=== PATIENT | male | born 1970 | race Caucasian/White ===

== ENCOUNTER 2018-01-27 21:39 | Emergency (ER) ==
[2018-01-27 21:47] VITALS: BP 171/99; TEMP 97.9; BMI 29.9
--- NOTE | 2018-01-27 21:59 | ED.PDOC ---
General ED Provider: Dr. HUNG SHAH Chief Complaint: Abdominal Pain Stated Complaint: Patient is a 47 year old male who comes to the ER with Abdominal and epigastric pain with radiation to the substernal area. Time Seen by Physician: 21:57 Mode of Arrival: Walk-In Information Source: Patient Exam Limitations: No limitations Nursing and Triage Documentation Reviewed and Agree: Yes Does patient meet sepsis criteria?: No If yes, has appropriate treatment been initiated?: No System Inflammatory Response Syndrome: Resp >20/Minute, Not Applicable Sepsis Protocol: For patient's 13 years and over: Temp is 96.8 and below OR 101 and greater Pulse >90 BPM Resp >20/minute Acutely Altered Mental Status Are patient's symptoms suggestive of a new infection, such as: -Pneumonia -Skin, Soft Tissue -Endocarditis -UTI -Bone, Joint Infection -Implantable Device -Acute Abdominal Infection -Wound Infection -Meningitis -Blood Stream Catheter Infection -Unknown Cardiovascular Complaint Exam - Chest Pain Complaint/Exam Onset: Gradual Duration: 2 hours Symptoms Are: Still present Timing: Constant Associated Signs and Symptoms: Reports: Diaphoresis Related History: Reports: Similar episode Related Surgical History: Reports: None History of Healthcare-Acquired Pneumonia: Reports: No AMI/ACS Risk Factors: Reports: None TAD Risk Factors: Reports: None Pulmonary Embolism Risk Factors: Reports: None Prior Care for this Complaint: No Recent Stress Test: No Recent Echo/LV Function: No JVD Present: No Subcutaneous Emphysema Present: No Diminshed Breath Sounds: No Reproducible Chest Wall Pain: No Bilateral Pulses Present: No Unequal Pulses Noted: No If Risk Factors for AMI/ACS Consider: EKG, Cardiac Enzymes Differential Diagnoses: Acute NH, Stable Angina, Unstable Angina Quality Indicators For Acute NH or Cardiac Chest Pain: EKG in 10min. Review of Systems - Review Of Systems Constitutional: Reports: No symptoms Eyes: Reports: No symptoms Ears, Nose, Mouth, Throat: Reports: No symptoms Cardiac: Reports: Chest pain GI: Reports: Abdominal pain (epigastric area ), Nausea : Reports: No symptoms Musculoskeletal: Reports: No symptoms Skin: Reports: No symptoms Neurological: Reports: Anxiety Endocrine: Reports: No symptoms Hematologic/Lymphatic: Reports: No symptoms All Other Systems: Reviewed and Negative Past Medical History - Past Medical History Previously Healthy: Yes Endocrine: Reports: None Cardiovascular: Reports: None Respiratory: Reports: None Hematological: Reports: None Gastrointestinal: Reports: None Genitourinary: Reports: None Neuro/Psych: Reports: Anxiety Musculoskeletal: Reports: None Cancer: Reports: None - Surgical History General Surgical History: Reports: Other (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 ) - Family History Family History: Reports: Heart, Hypertension, Cancer (Familial polyposis ) - Social History Smoking Status: Former smoker Hx Substance Use: No Alcohol Screening: None - Immunizations Tetanus Shot up to Date: Yes Physical Exam - Physical Exam Appearance: Ill-appearing Ill-appearing: Mild Eyes: ULISES, EOMI, Conjunctiva clear ENT: Ears normal, Nose normal, Oropharynx normal Respiratory: Airway patent, Breath sounds clear, Breath sounds equal, Respirations nonlabored Cardiovascular: RRR, Pulses normal, No rub, No murmur GI/: Soft, Nontender, No masses, Bowel sounds normal, No Organomegaly Musculoskeletal: Normal strength, ROM intact, No edema, No calf tenderness Skin: Warm, Dry, Normal color Neurological: Sensation intact, Motor intact, Reflexes intact, Cranial nerves intact, Alert, Oriented Psychiatric: Anxious, Depressed Interpretation - Radiology Interpretation Radiology Interpretation By: ED Physician Radiology Results: Negative Exam Interpreted: Portable CXR - Muck Operator Rate: Normal Rhythm: Sinus Ectopy: None - EKG Interpretation Time of EKG #1: 21:42 Rate: Bernardo Rhythm: Sinus Ectopy: None Interpretation: sinus Bradycardia Critical Care Note - Critical Care Note Total Time (mins): 0 Course - Course Hematology/Chemistry: 01/27/18 22:11 01/27/18 22:11 Orders, Labs, Meds: Lab Review 01/27/18 01/27/18 01/27/18 22:11 22:11 23:17 WBC 7.48 RBC 4.62 L Hgb 14.6 Hct 40.8 L MCV 88.3 MCH 31.6 H MCHC 35.8 H RDW Coeff of Diogenes 12.1 Plt Count 210 Immature Gran % (Auto) 0.3 Neut % (Auto) 62.2 Lymph % (Auto) 31.1 [place] % (Auto) 5.7 Eos % (Auto) 0.0 Baso % (Auto) 0.7 Immature Gran # (Auto) 0.0 Neut # (Auto) 4.7 Lymph # (Auto) 2.3 [place] # (Auto) 0.4 Eos # (Auto) 0.0 Baso # (Auto) 0.1 Sodium 140 Potassium 3.9 Chloride 106 Carbon Dioxide 26 Anion Gap 11.9 BUN 15 Creatinine 1.04 Estimated GFR (MDRD) 77.00 BUN/Creatinine Ratio 14.42 Glucose 140 H Calcium 9.3 Total Bilirubin 0.5 AST 24 ALT 36 Alkaline Phosphatase 70 Total Creatine Kinase 56 Troponin I < 0.0100 0.0100 Total Protein 6.2 L Albumin 3.6 Globulin 2.6 Albumin/Globulin Ratio 1.38 Amylase 54 Lipase 44 Orders Category Date Time Status EKG-(ED ONLY) Stat CARDIO 01/27/18 21:56 Completed AMYLASE Stat LAB 01/27/18 22:11 Completed CBC W/ AUTO DIFF Stat LAB 01/27/18 22:11 Completed COMPREHENSIVE METABOLIC PANEL Stat LAB 01/27/18 22:11 Completed CREATINE KINASE Stat LAB 01/27/18 22:11 Completed LIPASE Stat LAB 01/27/18 22:11 Completed TROPONIN I Stat LAB 01/27/18 22:11 Completed TROPONIN I Stat LAB 01/27/18 23:17 Completed CHEST, 1V AP ONLY Stat RADS 01/27/18 21:56 Completed Vital Signs: Temp Pulse Resp BP Pulse Ox 01/27/18 21:40 97.9 F 54 L 20 171/99 H 98 BESS Risk Score Age >/= 65: No >/= 3 CAD Risk Factors: No Known CAD (Stenosis >/= 50%): No ASA Use in Past 7 Days: No Severe Angina (>/= 2 episodes in 24 hours): No EKG ST Changes >/= 0.5mm: No Postive Cardiac Marker: No BESS Total Score: 0 BESS Risk Score: Risk Score Odds of by 30D 0 0.1 (0.1-0.2) 1 0.3 (0.2-0.3) 2 0.4 (0.3-0.5) 3 0.7 (0.6-0.9) 4 1.2 (1.0-1.5) 5 2.2 (1.9-2.6) 6 3.0 (2.5-3.6) 7 4.8 (3.8-6.1) Departure - Departure Time of Disposition: 23:17 Disposition: HOME SELF-CARE Discharge Problem: Dyspepsia Instructions: Indigestion (ED) Condition: Stable Pt referred to PMD for follow-up: Yes IPMP verified?: No Additional Instructions: Avoid foods that cause heart burn. Take over the counter Prilosec or zantac Follow up with PCP in 3 days Allergies/Adverse Reactions: Allergies No Known Allergies Allergy (Unverified 01/27/18 21:47) Home Medications: Ambulatory Orders 1 [No Reported Medications] 01/27/18 Disposition Discussed With: Patient, Family
--- NOTE | 2018-01-28 07:45 | DI ---
EXAM: Chest one view, frontal view only. HISTORY: Chest pain. COMPARISON: None available. FINDINGS: The heart size is normal. There is no pulmonary vascular congestion. The lungs are clear . No pleural effusion or pneumothorax is seen. No acute osseous abnormality is identified. IMPRESSION: No acute cardiopulmonary process.
== END 2018-01-27 23:57 | disposition home or self-care (01) ==
LOC: ED 21:39
DX: K30 Functional dyspepsia (principal)
CPT/HCPCS: 36415; 80053; 82150; 82550; 83690; 84484; 85025; 93005; 93010; 99283; 99284